=== PATIENT | female | born 1980 | race Two or more races ===

== ENCOUNTER 2016-10-19 19:10 | Emergency (ER) | payer MEDICAID ==
--- NOTE | ~2016-10-19 | ER ---
PATIENT'S NAME: STEFANIE TOM [facility] AGE: 36 Y [address] ROOM: [place] [id number] LOCATION: [facility] ADMIT DATE: 10/19/2016 ER/Outpatient Report DISCHARGE DATE: 10/19/2016 FAMILY PHYSICIAN: Jose Roberto Smith MD ATTENDING PHYSICIAN: Andrew Flannery Time of patient arrival: 1910 hours. Time of patient evaluation: 1920 hours. CHIEF COMPLAINT: Eye irritation. HISTORY OF PRESENT ILLNESS: This is a 36-year-old female who presents to the ER who states she has had eye irritation for the past 24 hours. She states she does wear contacts and she did take those out. She states she did notice some green drainage and now has redness to her eyes. She states that she has had a little bit of an upper respiratory infection as well. She states that she does not feel like she has anything in her eye or that anything got in her eye. She denies any other problems at this time. ALLERGIES: NO KNOWN ALLERGIES. MEDICATIONS: None. PAST MEDICAL HISTORY: Negative. PAST SURGICAL HISTORY: None. SOCIAL HISTORY: Drinks alcohol socially. Denies any smoking use. REVIEW OF SYSTEMS: CONSTITUTIONAL: Denies any change in weight or fatigue. HEENT: Complaining of bilateral eye irritation. Has had some upper respiratory congestion. SKIN: No lesions or rashes. PHYSICAL EXAMINATION: VITAL SIGNS: Height 5 feet 6 inches stated, weight 112.1 kg taken, blood pressure is 140/81, pulse 67, respirations 16, temperature 97.5 degrees PATIENT'S NAME: STEFANIE TOM [facility] AGE: 36 Y [address] ROOM: [place] [address] LOCATION: [facility] ADMIT DATE: 10/19/2016 ER/Outpatient Report DISCHARGE DATE: 10/19/2016 FAMILY PHYSICIAN: Jose Roberto Smith MD ATTENDING PHYSICIAN: Andrew Flannery tympanically, and saturations 97% on room air. Chuck Coma Score is 15. GENERAL: Alert, calm, well-developed female, in no acute distress. HEENT: Head: Normocephalic. Eyes: She does have some erythema noted to her conjunctivae. No ulcerations are noted to the cornea. She has no purulent drainage noted to her eyes at this time. She has no erythema to her upper or lower lids. LABORATORY DATA AND X-RAYS: None were done. IMPRESSION: Bilateral conjunctivitis, viral versus bacterial. ASSESSMENT AND PLAN: I did give the patient reassurance. I will dismiss her to home with a prescription for Polytrim eye drops to use as directed. I advised her not to wear contacts for at least the next week. If her contacts are disposable, I advise her to throw those away. If her eyes do not improve, I would like her to follow up with her eye doctor for followup care. The patient understands and agrees with care. STEFANIE DUARTE PA-C FOR MD DEB FLORES/zeyad /[id number] d: 10/20/16 0203 t: 10/24/16 1224, OUTPATIENT REPORT
[~2016-10-19 19:10] MED LIST: ADVIL200 MG PO; DOXYCYCLINE100 MG PO; IBUPROFEN800 MG PO; KEFLEX500 MG PO
== END 2016-10-19 19:40 | disposition disaster alternative care site (69) ==
LOC: GMED 19:10
DX: H10.9 Unspecified conjunctivitis (principal)